=== PATIENT | male | born 1960 | race Hispanic/Latino ===

== ENCOUNTER 2019-12-18 07:57 | Emergency (ER) | payer BC ==
[2019-12-18 08:56] LABS: Hematocrit 39.6 % (35.5-45.6); Hemoglobin 13.9 gm/dl (11.8-15.2); Mean Corpuscular HGB Conc 35 % (32-34); Mean Corpuscular Volume 110 fl (84-94); Red Cell Distribution Width 15.4 % (13.2-15.2)
[2019-12-18 08:58] LABS: Platelet Count 56 K/mm3 (140-440)
--- NOTE | 2019-12-18 09:02 | XRay Report ---
CHEST 1 VIEW INDICATION: SOB. COMPARISON: None FINDINGS: Support devices: None. Heart: Within normal limits. Lungs/Pleura: No acute air space or interstitial disease. Additional findings: None. IMPRESSION: 1. No acute findings. Signer Name: Son Cosme MD Signed: 12/18/2019 8:57 AM Workstation Name: [id number]
[2019-12-18 09:16] LABS: BUN/Creatinine Ratio 18; Blood Urea Nitrogen 9 mg/dL (9-20); Calcium 8.2 mg/dL (8.4-10.2); Hemolysis Index 18
--- NOTE | 2019-12-18 10:33 | Emergency Department Report ---
Minor Respiratory - HPI Chief Complaint: Dyspnea/Respdistress Stated Complaint: FEVER,SOB Time Seen by Provider: 12/18/19 09:56 Duration: 2 to 3 weeks Pain Location: Nose Severity: mild Minor Respiratory: Yes Able to Tolerate Fluids, Yes Cough, Yes Shortness of Breath, No Rhinorrhea, No Sore Throat, No Ear Pain, No Sick Contacts, No Hemoptysis, No Chest Pain, No Fever Other History: This is a 59-year-old male with no known prior medical conditions who presents the ED complaining shortness of breath and intermittent coughing for the past 3 weeks. Patient states that occasionally he feels feverish and gets chills. Patient states he is unsure if he has COPD has not been diagnosed but is a current everyday smoker of tobacco. Patient states he has not really been eating well because he has been feeling okay. Patient denies any recent t ravel anywhere or sick contacts. Patient states he is unsure if he has a flu or viral infection or the coronavirus. ED Review of Systems ROS: Stated complaint: FEVER,SOB Other details as noted in HPI Constitutional: no symptoms reported ED Past Medical Hx - Past Medical History Previous Medical History?: No - Surgical History Past Surgical History?: No - Social History Smoking Status: Current Every Day Smoker Substance Use Type: Alcohol - Medications Home Medications: Home Medications Medication Instructions Recorded Confirmed Last Taken Type Albuterol INH(or & Nicu Only) 2 puff IH QID PRN #8.5 gram 12/18/19 Unknown Rx [ProAir HFA Inhaler] Benzonatate [Tessalon Perles] 100 mg PO Q8HR #30 capsule 12/18/19 Unknown Rx Minor Respiratory Exam - Exam General: Vital signs noted. No distress. Alert and acting appropriately. HEENT: Yes Moist Mucous Membranes, No Pharyngeal Erythema, No Pharyngeal Exudat es, No Rhinorrhea, No Conjuctival Injection, No Frontal Tenderness, No Maxillary Tenderness Ear: Neither TM Bulge, Neither TM Erythema, Neither EAC Pain, Neither EAC Discharge Neck: Yes Supple, No Adenopathy Lungs: Yes Good Air Exchange, No Wheezes, No Ronchi, No Stridor, No Cough, No Labored Respirations, No Retractions, No Use of Accessory Muscles, No Other Abnormal Lung Sounds Heart: Yes Regular, No Murmur Abdomen: Yes Normal Bowel Sounds, No Tenderness, No Peritoneal Signs Skin: No Rash, No Edema Neurologic: Alert and oriented, no deficits. Musculoskeletal: Unremarkable. ED Course Vital Signs 12/18/19 12/18/19 12/18/19 08:03 09:49 09:55 Temperature 97.8 F 98.2 F Pulse Rate 110 H 94 H Respiratory 20 20 20 Rate Blood Pressure 176/112 Blood Pressure 163/106 [Right] O2 Sat by Pulse 97 97 100 Oximetry ED Medical Decision Making - Lab Data Result diagrams: 12/18/19 08:40 12/18/19 08:40 - Radiology Data Radiology results: report reviewed, image reviewed CHEST 1 VIEW INDICATION: SOB. COMPARISON: None FINDINGS: Support devices: None. Heart: Within normal limits. Lungs/Pleura: No acute air space or interstitial disease. Additional findings: None. IMPRESSION: 1. No acute findings. Signer Name: Son Cosme MD Signed: 12/18/2019 8:57 AM Workstation Name: [id number] Transcribed By: Dictated By: Son Cosme MD Electronically Authenticated By: Son Cosme MD Signed Date/Time: 12/18/19 0857 - Medical Decision Making 59-year-old male presents with upper respiratory symptoms for the past 3 weeks. no fever during the ED stay. Patient was able to walk back and forth 20 feet without any reduced saturation o r shortness of breath Discussed with the patient symptomatic relief with [id number] medications. Discussed continue Tylenol as needed for fever and pain. Discussed increase fluids and diet intake. Discussed rest much needed. Discussed daily vitamin C for immune booster. Discussed follow-up with [facility] physician in 3-5 days. Patient verbally states he understands and will comply the following instructions and follow-up Vital signs stable. Patient is in no acute or respiratory distress Critical care attestation.: If time is entered above; I have spent that time in minutes in the direct care of this critically ill patient, excluding procedure time. ED Disposition Clinical Impression: Upper respiratory infection Disposition: DC-01 TO HOME OR SELFCARE Is pt being admited?: No Does the pt Need Aspirin: No Condition: Stable Instructions: Upper Respiratory Infection (ED) Additional Instructions: Make sure to follow up with the primary care physician as discussed. Take all your medications as you've been prescribed. If you have any worsening symptoms or develop new symptoms please return to ED immediately. Prescriptions: Albuterol INH(or & Nicu Only) [ProAir HFA Inhaler] 2 puff IH QID PRN #8.5 gram PRN Reason: Shortness Of Breath Benzonatate [Tessalon Perles] 100 mg PO Q8HR #30 capsule Referrals: NUNNELLY TRINOMETHODIST JENNIE EDMUNDSON MD SIENNA [Primary Care Provider] - 3-5 Days SOUMYA LABOY MD [Referring] - 3-5 Days [facility] [Outside] - 3-5 Days [facility] [Outside] - 3-5 Days Forms: Accompanied Note, Work/School Release Form(ED) Time of Disposition: 10:39
[2019-12-18 11:04] VITALS: BP 178/117
== END 2019-12-18 10:55 | disposition home or self-care (01) ==
LOC: ED 07:57
DX: J06.9 Acute upper respiratory infection, unspecified (principal)
CPT/HCPCS: 36415; 71045; 80048; 85027; 99283